=== PATIENT | female | born 1985 | race Caucasian/White ===

== ENCOUNTER 2020-02-08 11:51 | Emergency (ER) | payer SELFPAY ==
[~2020-02-08] VITALS: Ht 177.8 cm; Wt 78.0 kg
[2020-02-08 12:23] VITALS: BP 109/56
[2020-02-08] MEDS ORDERED: IBUPROFEN 600MG TABLET PO ONE (16:15)
[2020-02-08] MEDS ORDERED: HYDROCODONE/ACETAMINOPHEN 5/325MG TABLET PO ONE (17:30)
== END 2020-02-08 18:05 | disposition home or self-care (01) ==
LOC: ER 11:51
DX: M25.561 Pain in right knee (principal); M25.562 Pain in left knee; M79.661 Pain in right lower leg; M25.551 Pain in right hip
CPT/HCPCS: 29505; 73560; 73590; 99284; L1830